=== PATIENT | male | born 1970 | race Two or more races ===

== ENCOUNTER 2016-11-29 20:38 | Emergency (ER) | payer SELFPAY ==
[~2016-11-29] VITALS: Ht 167.6 cm; Wt 77.1 kg
[2016-11-29 22:00] VITALS: BP 121/86
--- NOTE | 2016-11-30 00:21 | ED.ADGEN ---
Past Medical History Past Medical History: Hypertension Past Surgical History: No Surgical History Alcohol Use: Occasionally Drug Use: None Adult General Chief Complaint Chief Complaint: DIZZY/LIGHT HEADED HPI HPI Patient is a 46 year old man, history of hypertension for which he takes propranolol, who presents to the emergency department with complaint of headache and concern for hypertension. Patient states that he began developing headache about an hour and a half hours ago, located in the back of his head. No radiation, no neck pain, no injuries. He states that he went to the pharmacy to get some medication for his headache, and checked his blood pressure on when the machines in the pharmacy at that time, he states that it gave him reported setting apparently of 190s over 150s, and he came to the ED for evaluation. In the emergency department this time, blood pressure is 129/80, heart rate is in the 80s, oxygen saturation is 98% on room air, respiratory rate is 18 and unlabored. He states that currently his headache is down to a 4 out of 10 without any intervention, he denies any fevers or chills, any numbness, weakness , tingling, blurred vision, nausea, vomiting, injuries or other complaints. He states that he is primarily here to have his blood pressure checked and is relieved that is normal. Patient states he recently moved here from [place], states that he has "several months" of his propanolol after discussion with his primary care provider, and is working to establish a new primary care provider in this area. Review of Systems Review of Systems Constitutional: Denies fever or chills. [] Eyes: Denies change in visual acuity. [] HENT: Denies nasal congestion or sore throat. [] Respiratory: Denies cough or shortness of breath. [] Cardiovascular: Denies chest pain or edema. [] GI: Denies abdominal pain, nausea, vomiting, bloody stools or diarrhea. [] : Denies dysuria. [] Musculoskeletal: Denies back pain or joint pain. [] Integument: Denies rash. [] Neurologic: Denies focal weakness or sensory changes. Headache. Endocrine: Denies polyuria or polydipsia. [] Lymphatic: Denies swollen glands. [] Psychiatric: Denies depression or anxiety. [] Allergies Allergies Allergies Coded Allergies Type Severity Reaction Last Updated Verified No Known Drug Allergies 11/29/16 No Physical Exam Physical Exam Constitutional: Well developed, well nourished, no acute distress, non-toxic appearance. [] HENT: Normocephalic, atraumatic, bilateral external ears normal, oropharynx moist, no oral exudates, nose normal. [] Eyes: PERRLA, EOMI, conjunctiva normal, no discharge. [] Neck: Normal range of motion, no tenderness, supple, no stridor. No nuchal rigidity. Cardiovascular:Heart rate regular rhythm, no murmur, , S1, S2, rubs or gallops. No chest or crepitus or tenderness. [] Lungs & Thorax: Bilateral breath sounds clear to auscultation, no wheezing, rhonchi, rales. No chest wall crepitus or tenderness. [] Abdomen: Bowel sounds normal, soft, no tenderness, no masses, no pulsatile masses. [] Skin: Warm, dry, no erythema, no rash. [] Back: No tenderness, no CVA tenderness. [] Extremities: No tenderness, no cyanosis, no clubbing, ROM intact, no edema. Negative Homans sign. [] Neurologic: Alert and oriented X 3, normal motor function, normal sensory function, no focal deficits noted. [] Psychologic: Affect normal, judgement normal, mood normal. [] Current Patient Data Vital Signs Vital Signs Date Time Temp Pulse Resp B/P (MAP) Pulse Ox O2 Delivery O2 Flow Rate FiO2 11/29/16 22:00 71 17 121/86 (98) 95 Room Air 11/29/16 21:02 97.9 97.9 EKG EKG Not indicated. Radiology/Procedures Radiology/Procedures Not indicated.[] Course & Med Decision Making Course & Med Decision Making Pertinent Labs and Imaging studies reviewed. (See chart for details) Patient well-appearing, denies any symptoms currently aside from very mild headache, states he has had similar headaches previously, only presents the emergency room today due to concerns about elevated blood pressure based on the reading from the machine in the pharmacy. I did discuss with the patient that these machines are often incorrect, and especially with a reading of 190s over 50s, not indicative of an accurate blood pressure reading. Multiple blood pressure readings in the emergency department are not concerning, as stated headache is improved significantly without intervention. No other concerning signs or symptoms. He states he does have Tylenol at home, and will go home to take it. He is relieved his blood pressures of the normal limits as stated, no indication for additional evaluation at this time. Patient states he does have several months of his propanolol this time, but would appreciate a list of available primary care providers in the area to establish follow-up. We discussed concerning symptoms that prompt return to the ED for additional evaluation, patient voiced understanding and agreement, discharged home in stable condition with plan as above. Dragon Disclaimer Dragon Disclaimer This electronic medical record was generated, in whole or in part, using a voice recognition dictation system. Departure Impression: Primary Impression: Headache Disposition: HOME, SELF-CARE Condition: IMPROVED ETHAN JOSE DO Nov 30, 2016 00:21
--- NOTE | 2016-12-01 10:41 | EKG ---
[facility] [address] [place] [id number] Test Date: 2016-11-29 Test Time: 20:52:48 Pat Name: WILL HOGUE Department: Room: Gender: Supervisor Production: ED : 1970 Requested By: ETHAN JOSE Order Number: [id number] Reading MD: Lissette Martell Measurements Intervals [place] Rate: 74 P: 163 OR: 162 QRS: 109 QRSD: 74 T: -179 QT: 344 QTc: 387 Interpretive Statements SINUS RHYTHM RIGHTWARD AXIS OTHERWISE NORMAL EKG Electronically Signed On 12-02-2016 12:47:32 CDT by Lissette Martell
== END 2016-11-29 22:05 | disposition home or self-care (01) ==
LOC: ER 20:38
DX: R51 Headache (principal); I10 Essential (primary) hypertension
CPT/HCPCS: 93005; 99283-25